=== PATIENT | male | born 1980 | race Caucasian/White ===

== ENCOUNTER 2018-03-07 11:57 | Day surgery (SDC) | payer BC, SELFPAY ==
[2018-03-07 12:12] VITALS: BP 140/94; PULSE 64; RESP 16; TEMP 35.9; O2SAT 100
[2018-03-07] MEDS: Lactated Ringers 1,000 ML 80 ML IV (12:30)
--- NOTE | 2018-03-07 12:34 | ENDO_ITS ---
Date of service: 03/07/18 Time of Service: 13:08 Endoscopy Report DATE OF PROCEDURE: 03/07/18 PRE-OP DIAGNOSIS: Dysphagia, abnormal Barium Swallow POST-OP DIAGNOSIS: other (duodenitis, gastritis with gastric ulcers, esophagitis) PROCEDURE: EGD with biopsies by cold forceps SURGEON: Leah Cruz ANESTHESIA: MAC (Godfrey Perez, EMBEDDED SOFTWARE ARCHITECT/ ASA 2) ESTIMATED BLOOD LOSS: 4 PATHOLOGY: other (duodenal bx, gastric bx, GE junction bx) COMPLICATIONS: None DISPOSITION: same day INDICATIONS: Mr. Serrano is a pleasant 37 year old male who was seen in the office with dysphagia and a barium swallow suggestive of a stricture. Risks, benefits and complications of an EGD were reviewed. Complications include but are not limited to bleeding, pain, perforation, and adverse reaction to the medications. Questions were entertained and answered to his satisfaction and he wished to proceed. No guarantees were given or implied. FINDINGS: Mild inflammation in the duodenum. Moderate inflammation of stomach with a couple of shallow gastric ulcers Moderate inflammation of the esophagus at the GE junction PROCEDURE DESCRIPTION: After informed consent was obtained the patient was take to the procedure room and placed in a supine position. Monitors were applied and a time out was done. The patients name, date of , procedure type, allergie s to medications and metal in their body was reviewed. A bite block was placed and the patient was sedated. Once sedated and comfortable the gastroscope was advanced through the oropharynx which was grossly normal into the esophagus. The proximal and mid-esophagus were normal. In the distal esophagus there was inflammation noted at the GE junction. There was no stricture. The scope was easily advanced into the stomach and through the pylorus into the 3rd portion of the duodenum. The duodenum was noted to have some mild inflammation in the second and 1st portion of the duodenum. Biopsies were done of the inflammation. The scope was retracted back into the stomach and biopsies were done to rule out H. pylori. There were 2 small shallow ulcers above the pylorus. The scope was retroflexed. The cardia and fundus were noted to be normal. There was no hiatal hernia noted. The scope was retracted back into the esophagus and biopsies were done of the GE junction to rule out Garcia's. The Z line was regular. The GE junction was at 35 cm. The scope was removed and the patient was woken up and taken back to [facility] in stable condition. Follow up: 2-3 weeks in the office. I will start him on Carafate and a PPI.
--- NOTE | 2018-03-07 12:34 | W.PM.DSUDISC ---
Discharge Plan Disposition Patient Disposition: HOME Condition: Good Discharge Details Reason For Visit: Dysphagia Attending Provider: Leah Cruz Primary Care Provider: Naga Woody Home Meds and New Rx's Prescriptions: New omeprazole 40 mg capsule,delayed release(DR/EC) 40 mg PO DAILY Qty: 30 RF: 3 sucralfate 1 gram tablet 1 gm PO QID Qty: 56 RF: 0 Discharge Instructions Instructions: Upper Endoscopy (DC) Additional Instructions: Findings: Inflammation of the small bowel Inflammation of the stomach with ulcers Inflammation of the esophagus NO Strictures Follow up:2-3 weeks in the office Medications: Omeprazole 40 mg daily Carafate 1gm before meals and before bed for 14 days Please call if you develop: fevers >101.5 Nausea or Vomiting Abdominal pain that is not transient DAY SURGERY UNIT POST COLONOSCOPY INSTRUCTIONS 1. Because there will be medication in your system for the next 24 hours, you may feel a little sleepy. Your coordination will be affected. Therefore: a. Do not drive or operate dangerous equipment for 24 hours. b. Do not drink alcohol beverages for 24 hours (not even beer). c. Plan to go home and rest for the day. 2. Generally there are no restrictions on your activity after a day or so has gone by, but you may feel a bit fatigued for a few days. 3 After you arrive home you may have a light meal and return to a normal diet as you can tolerate it without feeling sick to your stomach. 4. After surgery, you may feel pain or discomfort. This should be only transient, but if it persists please contact your doctor. 5. If there are any questions regarding the findings of your procedure, please feel free to contact your doctor. 6. If you are unable to contact your doctor with a problem, contact the hospital at [phone]. 7. Continue all your regular medications unless directed otherwise. I understand the above instructions and have no questions. Signature of Patient or Responsible Adult Escort Date/Time Name of Responsible Adult Escort Signature of Nurse Date/Time Referrals: Leah Cruz MD [ [facility] STAFF PHYSICIAN] - (2-3 weeks) Activity:: Activity as Tolerated Diet:: As Tolerated Discharge Orders Discharge Orders: Discharge Order (Routine); Ordered 03/07/18 Ordered By: Leah Cruz DS: Diagnosis Discharge Diagnosis (1) Esophagitis: Status: Acute (2) Gastritis and duodenitis: Status: Acute (3) Gastric peptic ulcer: Status: Acute
--- NOTE | 2018-03-07 12:38 | HPE_ITS ---
Date of service: 03/07/18 Time of Service: 12:37 Assessment and Plan (1) Dysphagia: Current visit: Yes Status: Acute A\\ 3 years of dysphagia. Barium swallow showed scarring P\\ EGD with balloon dilatation Risks, benefits and complications have been reviewed. Complications include but are not limited to bleeding, pain, perforation, sore throat, aspiration, and adverse reaction to the medications. Questions were entertained and answered to their satisfaction and they wished to proceed. No guarantees were given or implied. History of Present Illness Narrative: Mr. Serrano is back to see me today because he continues to have problems with dysphasia. Apparently he had an upper endoscopy done about [address] García and was told that everything looked okay. He did have a barium swallow done around that same time which does show an 11-13 mm stricture in the distal esophagus. He has not been able to eat steak in about 3 years due to the dysphasia. He denies daily reflux. He does sometimes get acid reflux with eating pizza or drinking red wine. He does tell me that he used to suffer from daily reflux when he was a college student and was not eating healthy foods. He doesn't take an antacid. He denies any weight loss. He denies hematemesis. BARIUM SWALLOW: Fluoroscopy Time: .27 min Initial contact lens curve grinder view of the neck is unremarkable. Barium was ingested and showed grossly normal hypopharyngeal motility. Esophageal mucosa appears intact throughout. There is a smooth focus of narrowing in the gastroesophageal junction. A 12 mm. barium tablet became briefly lodged at this site but eventually passed into the stomach. Otherwise esophagus is of normal diameter throughout. 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 in diameter. Endoscopic correlation is recommended to evaluate the esophageal mucosa at this site. There have been no changes in his history since he was last seen. Review of Systems Cardiovascular Denies rapid heart rate, Denies irregular heart rhythm, Denies claudication, Denies dyspnea and Denies dyspnea on exertion Respiratory Denies cough, Denies dyspnea and Denies dyspnea on exertion [facility] Medical History History of esophageal stricture (Acute) External hemorrhoids Internal hemorrhoids Surgical History S/P hemorrhoidectomy (Acute ~12/11/17) Colonoscopy - MAC Hemorrhoidal Banding TESTICULAR SURGERY Tonsillectomy and adenoidectomy Family History Mother Diverticulitis Father Essential hypertension Depression Hyperlipidemia Brother No problems noted. Maternal Uncle Neoplasm Maternal Cousin Neoplasm Maternal Aunt Leukemia Grandfather Hyperlipidemia Neoplasm Grandfather Essential hypertension Neoplasm Grandmother No problems noted. Grandmother No problems noted. Maternal Uncle Neoplasm Social History Smoking/Tobacco Use Status: Former Tobacco Use Meds Home Medications Medication Instructions Recorded Confirmed Type Unknown [No Known Home Meds] 02/01/18 03/05/18 History Allergies Allergy/AdvReac Type Severity Reaction Status Date / Time No Known Allergies Allergy Verified 03/07/18 12:11 Exam Resp Effort & Inspection: normal respiratory effort Auscultation: clear to auscultation bilaterally Cardio Rate: regular rate Rhythm: regular rhythm Heart Sounds: no gallops, no murmurs and no rubs Results Last Vital Signs Temp 96.6 F L 03/07/18 12:12 Pulse 64 03/07/18 12:12 Resp 16 03/07/18 12:12 BP 140/94 H 03/07/18 12:12 Pulse Ox 100 03/07/18 12:12
[2018-03-07] MEDS: Lidocaine 2% Viscous 15 ML CUP (12:55)
--- NOTE | 2018-03-07 12:59 | BOWEL_PTH ---
PATIENT: Pardeep Serrano LOC: [facility] U#:[id number] AGE/SX: 37/M ROOM: RE03/07/[address]: Leah Cruz MD : 1980 BED: DIS: 03/07/2018 SPEC #: [id number] RECD: 03/07/18 17:32 STATUS: AURELIO REQ #: [id number] ALEXI: 03/07/18 12:[address]: Leah Cruz DEPT: Surgical Specimen RECD BY: Maddison Rice ENTERED: 03/07/18 17:33 SP TYPE: Bowel OTHR DR: Naga Woody MD Tissues: 1 - BIOPSY BOWEL 2 - STOMACH BIOPSY 3 - ESOPHAGUS BIOPSY Procedures: GROSS AND MICRO LEVEL 4 Comments: [id number]
[2018-03-07 13:41] VITALS: BP 147/93; PULSE 59; RESP 16; TEMP 36.3; O2SAT 100
== END 2018-03-07 14:06 | disposition home or self-care (01) ==
PROVIDERS: PCP Family Medicine; Visit Provider Surgery
PROC: 0DJ68ZZ Inspection of Stomach, Via Natural or Artificial Opening Endoscopic (ICD-10-PCS; CPT 43235; principal; 2018-03-07 12:45)
DX: R13.10 Dysphagia, unspecified (principal); K26.9 Duodenal ulcer, unspecified as acute or chronic, without hemorrhage or perforation; K29.60 Other gastritis without bleeding; K22.70 Barrett's esophagus without dysplasia
CPT/HCPCS: 43239; 88305; NC; J2250

== ENCOUNTER 2018-03-22 08:17 | Outpatient (CLI) | payer BC, SELFPAY ==
[2018-03-25 14:46] LABS: IgA 164 mg/dL (85-499); Interpretation SEE COMMENTS; Tissue Transglutaminase IgA <1.2 U/mL (<4.0)
== END 2018-03-22 08:37 ==
PROVIDERS: PCP Family Medicine; Visit Provider Surgery
DX: K29.90 Gastroduodenitis, unspecified, without bleeding (principal)
CPT/HCPCS: 36415; 82784; 83516

== ENCOUNTER 2018-11-19 10:03 | Outpatient (CLI) | payer BC, SELFPAY ==
[2018-11-19 12:43] LABS: Calculated LDL 109 mg/dL; Cholesterol 201 mg/dL (50-200); Glucose 102 mg/dL (70-100); HDL Cholesterol 50 mg/dL (40-60); Triglyceride 214 mg/dL (30-150)
[2018-11-22 10:24] LABS: Testosterone, Free 8.76 ng/dL (4.46-17.1); Testosterone, Total 313 ng/dL (240-950)
== END 2018-11-19 10:23 ==
PROVIDERS: PCP Family Medicine; Visit Provider Family Medicine
DX: Z00.00 Encounter for general adult medical examination without abnormal findings (principal); Z13.220 Encounter for screening for lipoid disorders; Z13.1 Encounter for screening for diabetes mellitus
CPT/HCPCS: 36415; 80061; 82947; 84402; 84403

== ENCOUNTER 2019-03-03 12:11 | Outpatient (CLI) | payer MEDICAID, SELFPAY ==
[2019-03-05 17:43] LABS: Testosterone, Free 7.41 ng/dL (4.46-17.1); Testosterone, Total 353 ng/dL (240-950)
== END 2019-03-03 12:31 ==
PROVIDERS: PCP Family Medicine; Visit Provider Family Medicine
DX: E29.1 Testicular hypofunction (principal)
CPT/HCPCS: 36415; 84402; 84403

== ENCOUNTER 2019-10-17 09:07 | Outpatient (CLI) | payer MEDICAID, SELFPAY ==
[2019-10-20 20:49] LABS: SARS-CoV-2 RNA Undetected (Undetected); SARS-CoV-2 Specimen Source Nasopharynx
== END 2019-10-17 09:27 ==
PROVIDERS: PCP Family Medicine; Visit Provider Family Medicine
DX: Z11.59 Encounter for screening for other viral diseases (principal)
CPT/HCPCS: U0003

== ENCOUNTER 2019-10-31 12:49 | Outpatient (CLI) | payer MEDICAID, SELFPAY ==
[2019-11-02 14:52] LABS: Patient Race White; SARS-CoV-2 RNA Undetected (Undetected); SARS-CoV-2 Specimen Source Nasopharynx
== END 2019-10-31 13:09 ==
PROVIDERS: PCP Family Medicine; Visit Provider Family Medicine
DX: Z11.59 Encounter for screening for other viral diseases (principal)
CPT/HCPCS: U0003

== ENCOUNTER 2019-12-10 02:02 | Outpatient (CLI) | payer MEDICAID, SELFPAY ==
[2019-12-10 12:49] LABS: Calculated LDL 103 mg/dL (<100); Cholesterol 201 mg/dL (<200); Glucose 102 mg/dL (74-106); HDL Cholesterol 67 mg/dL (40-60); Triglyceride 159 mg/dL (<150)
[2019-12-18 09:13] LABS: Testosterone, Free 7.85 ng/dL (4.46-17.1); Testosterone, Total 302 ng/dL (240-950)
== END 2019-12-10 02:22 ==
PROVIDERS: PCP Family Medicine; Visit Provider Family Medicine
DX: E78.5 Hyperlipidemia, unspecified (principal); R73.9 Hyperglycemia, unspecified; Z00.00 Encounter for general adult medical examination without abnormal findings
CPT/HCPCS: 36415; 80061; 82947; 84402; 84403

== ENCOUNTER 2020-10-26 01:14 | Outpatient (CLI) | payer MEDICAID, SELFPAY ==
--- NOTE | 2020-10-26 08:18 | DI.RAD_ITS ---
Exam(s) XR SOFT TISSUE NECK EXAM: XR SOFT TISSUE NECK CLINICAL HISTORY: Sneezed, severe pain with slight swelling,throat pain, r07.0. TECHNIQUE: 2D digital imaging was performed. COMPARISON: No exams were available for comparison FINDINGS: BONES: No acute fracture is present. Mild disc space narrowing and spurring is seen at C5-C6. There is straightening of the cervical spine which may be positional or related to muscle spasm. SOFT TISSUE:Airway is patent without radiopaque foreign body. Epiglottis is not enlarged. Prevertebra l soft tissues appear unremarkable. IMPRESSION: Mild degenerative changes at C5-C6. Otherwise unremarkable soft tissue neck examination. DATA REPOSITORY: RADIATION DOSE DELIVERED:
== END 2020-10-26 01:34 ==
PROVIDERS: PCP Family Medicine; Visit Provider Nurse Practitioner Family
DX: R07.0 Pain in throat (principal)
CPT/HCPCS: 70360

== ENCOUNTER 2021-07-13 02:22 | Outpatient (CLI) | payer MEDICAID, SELFPAY ==
[2021-07-13 07:33] LABS: HCT 43.1 % (40.0-50.0); HGB 15.4 g/dL (13.5-17.5); MCH 31.9 pg (27.0-33.0); MCHC 35.7 % (32.0-36.0); MCV 89 fL (80-95); MPV 9.4 fL (8.0-11.0); Platelet Count 196 10^3/uL (130-400); RBC 4.83 10^6/uL (4.36-5.78); RDW 11.9 % (11.8-14.1); RDW-SD 38.5 fL; WBC 4.76 10^3/uL (4.4-10.8)
[2021-07-13 08:20] LABS: Calculated LDL 134 mg/dL (<100); Cholesterol 234 mg/dL (<200); Glucose 108 mg/dL (74-106); HDL Cholesterol 62 mg/dL (40-60); Triglyceride 192 mg/dL (<150)
[2021-07-18 15:45] LABS: Testosterone, Free 10.3 ng/dL (4.46-17.1); Testosterone, Total 356 ng/dL (240-950)
== END 2021-07-13 02:23 | disposition home or self-care (01) ==
LOC: LBO 02:22
PROVIDERS: PCP Family Medicine; Visit Provider Family Medicine
DX: R53.83 Other fatigue (principal); R73.9 Hyperglycemia, unspecified; E78.5 Hyperlipidemia, unspecified; E29.1 Testicular hypofunction
CPT/HCPCS: 36415; 80061; 82947; 84402; 84403; 85027

== ENCOUNTER 2022-04-21 01:43 | Outpatient (CLI) | payer MEDICAID, SELFPAY ==
[2022-04-21 13:16] LABS: CREATININE 1.3 mg/dL (0.70-1.30); Potassium 4.2 mmol/L (3.5-5.1)
== END 2022-04-21 01:44 | disposition home or self-care (01) ==
LOC: LOS 01:43
PROVIDERS: Nurse Practitioner Family; PCP Family Medicine; Visit Provider Family Medicine
DX: I10 Essential (primary) hypertension (principal)
CPT/HCPCS: 36415; 82565; 84132

== ENCOUNTER 2023-02-22 10:37 | Day surgery (SDC) | payer MEDICAID, SELFPAY ==
--- NOTE | 2023-02-21 20:09 | W.PM.DSUDISC ---
Date of service: 02/22/23 Time of Service: 13:06 Discharge Plan Disposition Patient Disposition: Home Condition: Good Discharge Details Reason For Visit: Surveillance EGD Attending Provider: John Snow Primary Care Provider: Naga Woody Home Meds and New Rx's Prescriptions: Continued losartan-hydrochlorothiazide 50-12.5 mg tablet 1 tab PO DAILY Qty: 90 1RF (DME) syringe with needle [BD Integra Syringe] 3 mL 21 gauge x 1 1/2 syringe See Rx Instructions .ROUTE .MEDSUPPLY Qty: 25 0RF Rx Instructions: Inject every 2 weeks omeprazole 40 mg capsule,delayed release(DR/EC) 40 mg PO DAILY Qty: 90 3RF testosterone cypionate [Depo-Testosterone] 200 mg/mL oil 100 mg IM QWEEK Qty: 6 5RF No Action aspirin 81 mg tablet,delayed release (DR/EC) 81 mg PO DAILY Discharge Instructions Additional Instructions: Reg, we were able to complete your upper endoscopy today without any issues. Things look very good at the GE junction. Your Z-line, which is the connection between the lining of the esophagus, and the lining of the stomach is totally irregular. I did not see any evidence of advancing gastric mucosa worrisome for Garcia's. For now, I would continue with the omeprazole. As long as her symptoms of heartburn are well-managed, I do not think you need to make any other changes. To be safe, I would recommend repeating another EGD in about 5 years. If that 1 is also normal, we could give strong consideration to stopping surveillance, as you would be considered very risk for long-term complications. If anything changes in the meantime, please let me know. 1. If tolerated, consume a soft, low fiber diet for 1-2 days. 2. Do not drive, drink alcohol, operate machinery, make critical decisions, or do activities that require coordination or balance for 24 hours. 3. You may experience a sore throat for 24 to 48 hours. You may use throat lozenges or gargle with warm salt water to relieve the discomfort. 4. Because air was put into your stomach during the procedure, you may experience some belching. 5. Go directly to the emergency room if you notice any of the following: Develop chills (warm to touch), or if you have a thermometer and your temperature is above 101 Difficulty breathing or difficultly swallowing Persistent vomiting Severe abdominal pain, other than gas cramps Severe chest pain Black, tarry stools Any bleeding ? exceeding one tablespoon 6. Call your physician if the site where your intravenous was started becomes red, swollen, painful, and warm to touch. 7. Your physician has reviewed your pre-procedure medications. Please continue to take those medications as previously ordered. You will be given specific information/education regarding any changes to your medications before leaving. Activity:: Activity as Tolerated Diet:: As Tolerated Discharge Orders Discharge Orders: Discharge Order (Routine); Ordered 02/21/23 Ordered By: John Snow DS: Diagnosis Discharge Diagnosis (1) Garcia esophagus: Status: Acute Asessment and Plan: Normal-appearing esophagus and GE junction recommend follow-up in 5 years
--- NOTE | 2023-02-21 20:10 | W.PM.ENDDOP ---
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 He is here for surveillance. PROCEDURE START TIME: PROCEDURE END TIME: :47 FINDINGS: Mild antral gastritis PROCEDURE DESCRIPTION: After the initiation of monitored anesthetic care, and with the assistance of a bite block, I advanced a standard gastroscope through the mouth past the hypopharynx and into the esophagus.? Under the direct vision of the scope, I advanced down the esophagus into the stomach.? The GE junction and Z-line were encountered at 38 cm from the incisors. There were no clinical features that raised any concern. Narrowband imaging was used to assist with the examination. Again, everything looked normal. The Z-line was well-circumscribed, with no irregularity. I advanced the camera down into the stomach, and insufflated until the gastric rugae were obliterated. I performed retroflexion. I did not see any signs of hiatal hernia. I then advanced down towards the incisura angularis. There was very mild inflammation around the antral portion as it approached the pylorus. Otherwise, the mucosa looked healthy. I saw no ulcerations. I advanced through the pylorus into the duodenum. This also appeared normal. I was able to get down to the second portion of the duodenum without any difficulty. It was all normal. Next, I emptied the duodenum and returned back to the stomach. I examined it all once again. Again, it all looked normal. I then emptied the stomach, and brought the camera out along the length of the esophagus which was examined 1 last time. Again, I saw no evidence of any pathology along the length of the esophagus. Reg was then allowed awaken from his anesthesia and transferred back to the day surgery unit.
[2023-02-22 11:10] VITALS: BP 136/115; PULSE 72; RESP 16; TEMP 36; O2SAT 99
[2023-02-22] MEDS: Lactated Ringers 1,000 ML 80 ML IV (11:20)
--- NOTE | 2023-02-22 12:29 | W.ANESPRE ---
General Info Date of Service Date Performed: 02/22/23 Height: 6 ft 1 in Weight: 104.7 kg Body Mass Index (BMI): 30.4 Surgical Procedure: Operation Date: 02/22/23 12:20 Proposed Procedure Side Surgeon p Gastroscopy John Snow MD Meds Allergies and Home Medications Allergies Allergy/AdvReac Type Severity Reaction Status Date / Time No Known Allergies Allergy Verified 02/22/23 11:05 Home Medication Medication Instructions Recorded syringe with needle 3 mL 21 gauge #25 ea 11/29/18 x 1 /2 (BD Integra Syringe) omeprazole 40 mg capsule,delayed 40 mg PO DAILY #90 caps 09/07/22 release losartan 50 mg-hydrochlorothiazide 1 tab PO DAILY #90 tabs 11/01/22 12.5 mg tablet testosterone cypionate 200 mg/mL 100 mg (0.5 mL) IM QWEEK #6 vials 11/07/22 intramuscular oil (Depo-Testosterone) aspirin 81 mg tablet,delayed 81 mg PO DAILY 02/22/23 release Current Visit Medications: Current Medications Generic Name Dose Route Start Last Admin Trade Name Freq PRN Reason Stop Dose Admin Hyoscyamine Sulfate 0.125 mg 02/21/23 20:11 Hyoscyamine 0.125 Mg Sl/Oral/Chew SL 03/23/23 20:10 DIRECTED PRN Ringer's Solution 1,000 mls @ 80 mls/hr 02/22/23 06:00 02/22/23 11:20 IV 02/25/23 23:59 80 mls/hr INFUSION JHONATAN Administration IV Miscellaneous Supplies 1 each 02/22/23 06:00 Iv Access IV 02/25/23 23:59 DIRECTED JHONATAN Ondansetron HCl 4 mg 02/21/23 20:11 Ondansetron 4 Mg/2 Ml Vial IVP 03/23/23 20:10 Q4H PRN PRN Nausea / Vomiting Sodium Chloride 0 ml 02/22/23 06:00 Normal Saline Flush 10 Ml Syr IV 02/25/23 23:59 PRN PRN Sodium Chloride 0 ml 02/22/23 06:00 Normal Saline 10 Ml Vial IJ 02/25/23 23:59 DIRECTED PRN Sterile Water 0 ml 02/22/23 06:00 Water,Injection,Sterile 10 Ml Vial IJ 02/25/23 23:59 DIRECTED PRN PFSH Active Problems Active Problems: Problem Status Onset Code Garcia esophagus K22.70 Throat pain R07.0 Sebaceous cyst L72.3 Skin lesion L98.9 Hypertension I10 Testosterone deficiency E34.9 Hemorrhoids K64.9 History of testicular surgery Z98.890 Status post tonsillectomy and adenoidectomy Z90.89 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 Gastric peptic ulcer K25.9 Gastritis and duodenitis K29.90 Dysphagia R13.10 Esophagitis 10/13/13 K20.9 Diaphragmatic hernia 10/13/13 K44.9 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 Medical History Medical History History of esophageal stricture External hemorrhoids Internal hemorrhoids Surgical History Surgical History History of esophagogastroduodenoscopy (EGD) (~03/07/18) S/P hemorrhoidectomy (~12/11/17) [facility] Tonsillectomy and adenoidectomy TESTICULAR SURGERY AGE 8 Hemorrhoidal Banding 10/31/16 [facility] Colonoscopy - MAC 2004-NEG Tobacco Smoking/Tobacco Use Status: Former Tobacco Use Passive smoking exposure: No Second hand exposure: No Alcohol Alcohol Intake: current Alcohol intake frequency: a few times a week Alcohol type: wine Substance Use Substance use: Never Substance use type: does not use Details: alcohol; wine, t-2, couple glasses Vital Signs and Lab Results Vital Signs Most Recent Vital Signs in EMR: Most Recent Vital Signs Temp Pulse Resp BP Pulse Ox 36.0 C L 72 16 136/115 H 99 02/22/23 11:10 02/22/23 11:10 02/22/23 11:10 02/22/23 11:10 02/22/23 11:10 Lab Results Blood Type / Crossmatch: No Data to Display Complete Blood Count: No Data to Display Complete Metabolic Panel: No Data to Display Liver Function Panel: No Data to Display Coagulation Panel: No Data to Display Cardiac Panel: No Data to Display Arterial Blood Gas: No Data to Display Venous Blood Gas: No Data to Display Pancreas Panel: No Data to Display Thyroid Panel: No Data to Display Infectious Disease: No Data to Display Blood Cultures: No Data to Display Toxicology Panel: No Data to Display Anesthesia Assessment and Plan Anesthesia History Personal History: No History of Anesthesia Complications Family History: No Family History of Anesthesia Complications Exercise Tolerance Exercise Tolerance: Metabolic Equivalents>4 Pertinent Negatives Pertinent Negatives: No Symptoms of GERD, No Major Cardiovascular Symptoms or Complaints and No Major Pulmonary Symptoms or Complaints Cardiac & Pulmonary Exam Cardiac Exam: Normal S1/S2 Heart Sounds Pulmonary Exam: Clear Bilateral Breath Sounds Implantable Cardiac Device Does patient have a Pacemaker or an ICD?: No Airway Exam Known Difficult Airway: No Mallampati Class: 2 Mouth Opening: Normal (> 3cm) Thyromental Distance: Greater than 3 cm Neck Range of Motion: Full ROM Neck Circumference: Normal Teeth Condition: Normal Dentition ASA Classification ASA Score: ASA 2 Emergency Case?: No NPO Status NPO Status: NPO Clears >2 hours, Solids >8 hours Anesthesia Plan Resuscitation Status: Full Code Anesthesia Technique: General Anesthesia Airway Planned: Natural Airway Monitors Used: Standard Monitors
[2023-02-22 12:30] VITALS: BP 130/91
[2023-02-22 12:33] VITALS: BMI 30.4
[2023-02-22 12:58] VITALS: BP 126/103; PULSE 72; RESP 16; TEMP 36; O2SAT 97
--- NOTE | 2023-02-22 13:10 | W.ANESPOSTOP ---
Postoperative Evaluation Date, Time and Location Date Performed: 02/22/23 Time Performed: 13:10 Patient Location: Day Surgery Unit Vital Signs Most Recent Imported Vital Signs: Most Recent Vital Signs Temp Pulse Resp BP Pulse Ox 36.0 C L 72 16 130/91 H 99 02/22/23 11:10 02/22/23 11:10 02/22/23 11:10 02/22/23 12:30 02/22/23 11:10 Pain Score Most Recent Pain Score: Most Recent Pain Score Pain Level 0 02/22/23 11:10 Assessment Mental Status: Awake (Alert & Oriented to Patient Baseline) Airway and Respiratory Function: Patent airway with normal (patient baseline) respiratory exam Cardiovascular Function: Hemodynamically Stable Hydration Status: Adequately Hydrated Nausea & Vomiting: No Nausea or Vomiting Pain: Pt. Denies Any Pain Peripheral Nerve Block: Patient did not receive a nerve block
[2023-02-22 13:31] VITALS: BP 137/98; PULSE 67; RESP 18; TEMP 36; O2SAT 98
== END 2023-02-22 13:45 | disposition home or self-care (01) ==
LOC: SUR 10:37
PROVIDERS: PCP Family Medicine; Visit Provider Surgery
PROC: 0DJ68ZZ Inspection of Stomach, Via Natural or Artificial Opening Endoscopic (ICD-10-PCS; CPT 43235; principal; 2023-02-22 12:15)
DX: K22.70 Barrett's esophagus without dysplasia (principal)
CPT/HCPCS: 43235; J2001; J2704